=== PATIENT | female | born 1990 | race Caucasian/White ===

== ENCOUNTER 2017-10-27 18:08 | Emergency (ER) | payer MEDICAID, OTHER ==
[2017-10-27] MEDS ORDERED: SODIUM CHLORIDE 0.9% FLUSH 10 ML SOL IV PRN (18:19)
[2017-10-27] MEDS ORDERED: LORAZEPAM 2 MG/ML SOL IV ONE (18:28)
[2017-10-27] MEDS ORDERED: SODIUM CHLORIDE 0.9% 1000ML 1,000 ML IV SCH (18:30)
[2017-10-27 18:42] LABS: HEMATOCRIT 41 % (35-47); HEMOGLOBIN 14.9 gm/dl (12.0-15.5); MEAN CORPUSCULAR HEMOGLOBIN 29.2 pg (27.0-32.0); MEAN CORPUSCULAR HGB CONC 36.2 gm/dl (32.0-36.0)
[2017-10-27 19:00] LABS: ALBUMIN 4.3 gm/dl (3.4-5.0); BILIRUBIN,TOTAL 0.5 mg/dl (0.2-1.0); CALCIUM 9.1 mg/dl (8.5-10.1); CREATININE 0.74 mg/dl (0.60-1.00); POTASSIUM 3.2 mMol/L (3.5-5.1); TOTAL PROTEIN 7.5 gm/dl (6.4-8.2)
[2017-10-27 19:17] LABS: MEAN CORPUSCULAR VOLUME 81 fL (81-99)
[2017-10-27 19:35] VITALS: RESP 18; TEMP 96.4; O2SAT 98
[2017-10-27 19:47] LABS: BAND NEUTROPHILS % (MANUAL) 0 %; BASOPHILS % (MANUAL) 0 % (0-3); EOSINOPHILS % (MANUAL) 1 % (0-9); LYMPHOCYTES % (MANUAL) 41 % (10-50); MONOCYTES % (MANUAL) 4 % (0-12); NEUTROPHILS % (MANUAL) 54 % (37-80); NORMAL RBCS NORMAL RBCS
[2017-10-27 20:49] VITALS: BP 113/69; PULSE 80
== END 2017-10-27 20:36 | disposition home or self-care (01) | DRG 779 ==
LOC: SUPCPDRO 18:08 → ED 18:08
DX: O02.1 Missed abortion (principal); Z3A.09 9 weeks gestation of pregnancy
CPT/HCPCS: 80053; 85007; 85027; 96365; 99283; 99284; A6402

== ENCOUNTER 2018-03-16 16:05 | Emergency (ER) | payer OTHER ==
[2018-03-16 16:13] VITALS: TEMP 98.9
[2018-03-16] MEDS ORDERED: APAP/HYDROCODONE 1 EACH TABLET PO ONE (16:24)
[2018-03-16] MEDS ORDERED: APAP/HYDROCODONE 1 EACH TABLET ONE (16:25)
[2018-03-16 16:51] VITALS: O2SAT 98
[2018-03-16 16:52] VITALS: BP 144/93; PULSE 105; RESP 18
== END 2018-03-16 17:12 | disposition home or self-care (01) | DRG 605 ==
LOC: ED 16:05
DX: S90.31XA Contusion of right foot, initial encounter (principal); V89.2XXA Person injured in unspecified motor-vehicle accident, traffic, initial encounter
CPT/HCPCS: 73610; 99283; G0390; A9270-GY